=== PATIENT | male | born 1955 | race Caucasian/White ===

== ENCOUNTER 2021-03-25 09:15 | Emergency (ER) | payer MEDICARE, SELFPAY ==
[2021-03-25 09:34] VITALS: BP 140/86; PULSE 48; RESP 16; TEMP 36.6; O2SAT 96; BMI 26.7
--- NOTE | 2021-03-25 09:40 | HMH.EDUTC ---
[facility] [place] Disposition Clinical Impression: Laceration of left index finger Qualifiers: Encounter type: initial encounter Damage to nail status: without damage Foreign body presence: without foreign body Qualified Code(s): S61.211A - Laceration without foreign body of left index finger without damage to nail, initial encounter Disposition: Home, Self-Care Condition on Discharge: Good Instructions: Tetanus, Diphtheria, and Pertussis Vaccine, Cephalexin, Mupirocin, DI for Open Laceration Additional Instructions: Keep the wounds clean and dry. It is too late to suture the wound. It will need to heal from the inside out to try to prevent infection. Follow up with your regular doctor. Take the antibiotics as directed and apply the topical antibiotics as directed. Watch the wounds for signs of worsening infection, such as worsening redness, drainage, swelling, etc. GO TO THE ER FOR ANY WORSENING SYMPTOMS Since you don't have a regular doctor, we are going to give you a list of physicians that are taking new patients. You need to follow up with one in 2 to 3 days to have this wound rechecked and make sure there is nothing else that can be done for possible infection or other complications that might arise. If you cannot get in to be seen at one of the primary care physicians, please return here to the urgent care or go somewhere. Prescriptions: Mupirocin [Bactroban 2% Ointment 22gm tube] 1 applicatio TP TID 7 Days #1 gm Transmission Status: Received by [facility] #[id number] cephALEXin [cephALEXin 500mg capsule] 500 mg PO Q6H 10 Days #40 cap Transmission Status: Received by [facility] #[id number] Referrals: Provider,ReferralMD [Primary Care Provider] - Time of Disposition: 11:29 Medical Decision Making - Medical Records Medical records reviewed: No: I reviewed the patient's medical records. - [place] Inquiry Pt receiving controlled substance: No Vital Signs: 03/25/21 09:34 03/25/21 11:33 Temperature 97.9 F 97.9 F Temperature Source Oral Pulse Rate 48 L Pulse Rate [Right Brachial] 48 L Respiratory Rate 16 16 Blood Pressure 140/86 Blood Pressure [Right Arm] 140/86 Blood Pressure Mean [Right Arm] 104 Blood Pressure Source [Right Arm] Automatic Cuff Blood Pressure Position [Right Arm] Sitting 02 Sat by Pulse Oximetry 96 Oxygen Delivery Method Room Air Orders (Tests/Meds): ED MEDICATIONS Discontinued Medications Generic Name Dose Route Start Last Admin Trade Name Sorin PRN Reason Stop Dose Admin Ceftriaxone Sodium 1 gm 03/25/21 09:55 03/25/21 10:05 Ceftriaxone 1gm Vial IM 03/25/21 09:56 1 gm ONCE ONE Administration Lidocaine HCl 0 ml 03/25/21 09:55 03/25/21 10:06 Lidocaine 1% 5ml Pf Vial IM 03/25/21 09:56 2.1 ml ONCE ONE Administration Tetanus/Reduced Diphtheria/Acell Pertussis 0.5 ml 03/25/21 09:55 03/25/21 10:06 Tet/Diphth/Pert-Adult 0.5ml Syringe IM 03/25/21 09:56 0.5 ml .ONCE ONE Administration Medical Decision Narrative: The wound is 2 days old, so it is too old to suture. It was very dirty, so it was soaked thoroughly in hibiclens and sterile water, then cleaned well with a betadyne scrub brush. It was explored and irrigated very well. no additional foreign bodies were found in the wound after the straw and dirt was removed. He toleraled this well. He was instructed to f/u here of with a pcp within 2 to 3 days for a recheck and to start the keflex and the mupirocin. [facility] [place] HPI - General Stated complaint: cut finger friday afternoon Time Seen by Provider: 03/25/21 09:40 Mode of Arrival: Ambulatory Source of Information: Patient Limitations: No Limitations Description of Symptoms (Recalled from Triage Doc. by RN): cut finger HEENT Symptoms (Recalled from RN notes): No Resp Symptoms (Recalled from RN notes): No Skin Symptoms (Recalled from RN notes): Yes MS Symptoms (Recalled from RN notes): No Functional Status (Recalled
[2021-03-25 11:33] VITALS: BP 140/86; PULSE 48; RESP 16; TEMP 36.6
== END 2021-03-25 11:33 | disposition home or self-care (01) ==
PROVIDERS: Emergency Provider Nurse Practitioner Family
DX: S61.211A Laceration without foreign body of left index finger without damage to nail, initial encounter (principal); W26.9XXA Contact with unspecified sharp object(s), initial encounter; Y92.79 Other farm location as the place of occurrence of the external cause; Z23 Encounter for immunization
CPT/HCPCS: G0463; 90715; 96372; 99202